=== PATIENT | female | born 1970 | race Caucasian/White ===

== ENCOUNTER 2017-05-08 09:33 | Emergency (ER) | payer MEDICAID ==
[~2017-05-08] VITALS: Ht 167.6 cm; Wt 69.4 kg
[~2017-05-08 09:33] MED LIST: ATOR10TA PO; LISI10TA11 PO; METF750T PO
[2017-05-08 09:52] VITALS: BP 141/72
--- NOTE | 2017-05-08 11:10 | NUR ---
DR FERNÁNDEZ EVALUATING AAO PT AT BEDSIDE
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
[2017-05-08 11:41] VITALS: BP 129/75
--- NOTE | 2017-05-08 11:41 | NUR ---
Patient discharged with v/s stable. Written and verbal after care instructions given and explained. Patient alert, oriented and verbalized understanding of instructions. Ambulatory with steady gait. All questions addressed prior to discharge. ID band removed. Patient advised to follow up with PMD. Rx of KEFLEX, DIPHENHYDRAMINE given. Patient educated on indication of medication including possible reaction and side effects. Opportunity to ask questions provided and answered.
== END 2017-05-08 11:41 | disposition home or self-care (01) ==
LOC: MED 09:33
DX: R21 Rash and other nonspecific skin eruption (principal); E11.9 Type 2 diabetes mellitus without complications; I10 Essential (primary) hypertension; E78.5 Hyperlipidemia, unspecified; Z79.899 Other long term (current) drug therapy
CPT/HCPCS: 99283